=== PATIENT | female | born 1990 | race Caucasian/White ===

== ENCOUNTER 2019-02-11 16:05 | Outpatient (CLI) | payer OTHER ==
--- NOTE | 2019-02-11 17:01 | RAD ---
TWO VIEWS LUMBAR SPINE: 02/11/19 HISTORY: Lumbago with left sided sciatica. FINDINGS: There are five nonribbearing lumbar type vertebral bodies. The vertebral body heights are within norm al limits. There is mild narrowing of the intervertebral disc spaces at the lower lumbar spine. There is mild left convexed rotoscoliosis of the lumbar spine. No fracture, subluxation is appreciated. IMPRESSION: Mild degenerative changes of the lower lumbar spine without fracture or subluxation. POS: [facility]
== END 2019-02-11 16:06 | disposition home or self-care (01) ==
LOC: BICRAD 16:05
PROVIDERS: ATTEND Physician Assistant
DX: M54.42 Lumbago with sciatica, left side (principal); M47.816 Spondylosis without myelopathy or radiculopathy, lumbar region
CPT/HCPCS: 72100